=== PATIENT | male | born 1940 | race Caucasian/White ===

== ENCOUNTER 2019-08-03 07:27 | Inpatient (IN) ==
--- NOTE | 2019-06-29 09:44 | PAT Medication Instructions ---
Medication Instructions Date of Service June 29, 2019 Home Medications aspirin 325 mg PO DAILY isosorbide mononitrate 60 mg PO DAILY ASK your prescriber and surgeon aspirin 325 mg PO DAILY Take morning of surgery With a small sip of water, OTHERWISE NOTHING TO EAT OR DRINK AFTER MIDNIGHT: isosorbide mononitrate 60 mg PO DAILY Other Notes If you have any questions please call us at [phone] or [phone] or [phone] or [phone]
--- NOTE | 2019-06-29 11:11 | Anesthesiology Consultation ---
Date of Service June 29, 2019 Assessment & Plan (1) Encounter for pre-operative examination: PCP clearance scheduled for 07/12/2019. Chart Review Chart Review: Acceptable Risk for Surgery (Pending PCP clearance/response to note re: renal function) and Patient seen in Pre Admission Testing Teaching & Discussion Instructed NPO after midnight before surgery, except medications with 15 cc of water. Medication instructions provided according to the PAT guidelines. History Surgery Operation Date: 08/03/19 09:05 Proposed Procedures p Left Total Knee Arthroplasty - Walt Otero DO Height/Weight Height: 5 ft 8.5 in Weight: 70.5 kg Allergies Allergy/AdvReac Type Severity Reaction Status Date / Time No Known Allergies Allergy Verified 06/28/19 15:37 Medications Home Medications Medication Instructions Recorded Confirmed Last Taken aspirin 325 mg PO DAILY 06/28/19 06/28/19 Unknown isosorbide mononitrate 60 mg PO DAILY 06/28/19 06/28/19 Unknown Past Medical History Medical History CAD (coronary artery disease) s/p single stent ~11 yrs ago. Was previously on full medical regimen but states the medications "made me feel awful," and he discontinued them. Pt is very active with no limiting cardiopulmonary symptoms. 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.) Past Family History Family History Brother Family hx of colon cancer Past Surgical History Surgical History H/O shoulder surgery LEFT History of cataract surgery RT/LEFT History of colonoscopy History of esophagogastroduodenoscopy (EGD) History of heart artery stent 1 STENT PLACED 11 YEARS AGO [facility] History of nephrectomy, right "GROWTH FOUND/REMOVED" (BENIGN) History of open reduction and internal fixation (ORIF) procedure LEFT LEG History of orchiectomy History of tonsillectomy and adenoidectomy History of tooth extraction Past Anesthesia History No Hx of Anesthesia Complications and No Family Hx of Anesthesia Complications History of PONV No Hx of PONV and No Hx of Motion Sickness Social History Smoking Status: Never smoker Do You Dip or Chew Tobacco: No Hx Alcohol Use: Yes Alcohol type: wine alcohol intake frequency: a few times a week Hx Substance Use: No substance use type: does not use Review of Systems Pt denies any chest pain, shortness of breath, palpitations, cough, fever or URI. Physical Exam Vital Signs BP: 144/63 P: 73bpm SPO2: 96% RA T: 98.2 F R: 16 ENMT Mouth: + dentures (full set) and + edentulous Thyromental Distance: < 3.5 Finger Breadths (3) Mallampati Class: I Neck normal visual inspection; neck extension not limited Respiratory normal respiratory effort Auscultation: lungs clear to auscultation bilaterally Cardiovascular Rate/Rhythm: regular rate and regular rhythm Heart Sounds: no murmur Vessels: no carotid bruit Extremities: no edema Testing Laboratory Results 06/29/19 11:25 06/29/19 11:25 PT 10.3 Seconds (9.0-12.0) 06/29/19 11:25 INR 1.0 (0.9-1.1) 06/29/19 11:25 APTT 27.0 Seconds (21.0-31.0) 06/29/19 11:25 Hemoglobin A1c 5.8 % (4.5-5.6) H 06/29/19 11:25 Urine Color Yellow 06/29/19 11:25 Urine Appearance Clear (Clear) 06/29/19 11:25 Urine pH 5.0 (4.5-7.5) 06/29/19 11:25 Ur Specific [place] 1.024 (1.000-1.030) 06/29/19 11:25 Urine Protein Negative (Negative) 06/29/19 11:25 Urine Glucose (UA) Negative (Negative) 06/29/19 11:25 Urine Ketones Negative (Negative) 06/29/19 11:25 Urine Nitrite Negative (Negative) 06/29/19 11:25 Ur Leukocyte Esterase Negative (Negative) 06/29/19 11:25 Urine WBC (Auto) 1-5 /hpf (0-5) 06/29/19 11:25 Urine RBC (Auto) 5-10 /hpf (0-4) H 06/29/19 11:25 U Hyaline Cast (Auto) 1-5 /lpf (0-5) 06/29/19 11:25 U Epithel Cells (Auto) 0-5 /lpf (0-5) 06/29/19 11:25 Urine Bacteria (Auto) Negative (Negative) 06/29/19 11:25 Blood Type A Positive 06/29/19 11:25 Antibody Screen NEGATIVE 06/29/19 11:25 Electrocardiogram Date: 06/29/19 Sinus rhythm at 64 bpm with occasional PVCs. Voltage criteria for LVH. Chest X-Ray Date: 06/29/19 FINDINGS: Cardiac mediastinal and hilar silhouettes are within normal limits. Calcified plaque of the thoracic aortic arch. No pneumothorax, pleural effusion, focal airspace consolidation or overt pulmonary edema. Lungs are mildly hyperinflated. Degenerative changes of the shoulders and spine. Vascular calcifications and surgical clips of the upper abdomen. IMPRESSION: Mild hyperinflation without acute process.
--- NOTE | 2019-06-29 12:01 | XRay Report ---
XR chest Pre-admission PA/Lat HISTORY: 78 years-old Male pat preoperative exam. No acute chest complaints COMPARISON: None available TECHNIQUE: PA and lateral views of the chest FINDINGS: Cardiac mediastinal and hilar silhouettes are within normal limits. Calcified plaque of the thoracic aortic arch. No pneumothorax, pleural effusion, focal airspace consolidation or overt pulmonary edema . Lungs are mildly hyperinflated. Degenerative changes of the shoulders and spine. Vascular calcifica tions and surgical clips of the upper abdomen. IMPRESSION: Mild hyperinflation without acute process. The above report was generated using voice recognition software. It may contain grammatical, syntax o r spelling errors. Electronically signed by: Atul Quinn M.D. 06/29/2019 11:59 AM
[2019-06-29 12:27] LABS: Basophils # (auto) 0.02 K/uL (0-0.2); Basophils % (auto) 0.4 %; Eosinophils % (auto) 3.7 %; Hematocrit (blood only) 40.1 % (42-52); Hemoglobin 12.8 g/dL (14.0-18.0); Immature Granulocytes # (auto) 0.01 K/uL (0.00-0.02); Immature Granulocytes % (auto) 0.2 %; Mean Corpuscular Hemoglobin 28.6 pg (25-34); Mean Corpuscular Hgb Conc 31.9 g/dL (32-36); Mean Corpuscular Volume 89.7 fL (80-100); Mean Platelet Volume 9.4 fL (7.4-10.4); Monocytes # (auto) 0.32 K/uL (0.11-0.59); Neutrophils % (auto) 61.7 %; Platelet Count 163 K/uL (130-400); RDW Coefficient of Variation 14.3 % (11.5-14.5); Red Blood Count 4.47 M/uL (4.7-6.1); White Blood Count 5.35 K/uL (4.8-10.8)
[2019-06-29 12:31] LABS: Appearance Urine Clear (Clear); Bacteria Urine Automated Negative (Negative); Bilirubin Urine Negative (Negative); Blood Urine 1+ (Negative); Color Urine Yellow; Epithelial Cell Urine Auto 0-5 /lpf (0-5); Glucose Urine UA Negative (Negative); Ketones Urine Negative (Negative); Leukocyte Esterase Urine Negative (Negative); Nitrite Urine Negative (Negative); Protein Urine Negative (Negative); Specific Gravity Urine 1.024 (1.000-1.030); Urobilinogen Urine Negative (Negative)
[2019-06-29 12:45] LABS: Prothrombin Time 10.3 Seconds (9.0-12.0)
[2019-06-29 13:00] LABS: Estimated Average Glucose 120 mg/dl; Hemoglobin A1C 5.8 % (4.5-5.6)
[2019-06-29 13:35] LABS: Albumin Level 3.3 gm/dl (3.4-5.0); BUN Creatinine Ratio 15.1 (10-20); Calcium 8.6 mg/dl (8.5-10.1); Creatinine Clr Calc Pharmacy 32.2 ml/min; Est GFR (African American) 38.8; Est GFR (Non-African American) 33.5; Potassium 3.9 mmol/L (3.5-5.1)
--- NOTE | 2019-07-13 13:32 | History & Physical Report ---
Date of Service July 13, 2019 date of surgery: 08-03-19 Assessment & Plan (1) Osteoarthritis of left knee: Further care discussed with patient and at this point in time has failed conservative measures and would like to proceed with a Left total knee replacement. Plan on discharge will be home with Home Health physical therapy. DVT prophalaxis with TEDs, SCDs and will also place on aspirin 81 mg p.o. b.i.d. for a month postop. Patient will have follow up appointment in our office two weeks post op for staple removal and re-evaluation. Patient otherwise has no other questions or concerns. History of Present Illness Chief Complaint: left knee pain Mr Lundy is a 78 year old male who is here for a follow up of left knee pain, presents for pre-op evaluation prior to a left total knee replacement at [facility]. He complains of pain and decreased range of motion. denies any injuries or trauma. he has had prior cortisone as well as previous Synvisc one injections with minimal relief. The pain is described as aching, sharp and occasional stabbing. He rates his current pain as 5/10 and worst is 8/10. The symptoms are aggravated by daily activities, standing for prolonged periods of time, and walking. In addition to knee pain he is also experiencing limping and joint pain. Allergies Allergy/AdvReac Type Severity Reaction Status Date / Time No Known Allergies Allergy Verified 06/28/19 15:37 Home Medications Home Medications Medication Instructions Recorded Confirmed Type aspirin 325 mg PO DAILY 06/28/19 06/28/19 History isosorbide mononitrate 60 mg PO DAILY 06/28/19 06/28/19 History Past Med/Surg History Medical History CAD (coronary artery disease) s/p single stent ~11 yrs ago. Was previously on full medical regimen but states the medications "made me feel awful," and he discontinued them. Pt is very active with no limiting cardiopulmonary symptoms. Hyperlipidemia HX Hypertension Testicular cancer Surgical History H/O shoulder surgery LEFT History of cataract surgery RT/LEFT History of colonoscopy History of esophagogastroduodenoscopy (EGD) History of heart artery stent 1 STENT PLACED 11 YEARS AGO [facility] History of nephrectomy, right "GROWTH FOUND/REMOVED" (BENIGN) History of open reduction and internal fixation (ORIF) procedure LEFT LEG History of orchiectomy History of tonsillectomy and adenoidectomy History of tooth extraction Family History Brother Family hx of colon cancer Social History Preferred Language: Upper Sorbian Communication Ability: Effective 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 Beliefs That Will Affect Care: None Current Living Situation: Spouse Other Information That Helps Us Care for You: No Feels Safe at Home: Yes Safety Concerns: Feels Safe At This Time Smoking Status: Never smoker Do You Dip or Chew Tobacco: No ; Second Hand Exposure: No ; Tobacco Cessation Education Requested by Patient: No Hx Alcohol Use: Yes Alcohol type: wine Hx Substance Use: No Review of Systems Review of Systems: All systems reviewed & are unremarkable except as noted in HPI & below Constitutional: no fever, no chills and no sweats Respiratory: no cough and no dyspnea Cardiovascular: no chest pain, no dyspnea and no orthopnea Gastrointestinal: no abdominal pain, no nausea and no vomiting Musculoskeletal: as per Subjective / HPI Physical Exam Physical Exam: Ht: 5ft 8in Wt: 70.5kg BP: 164/82 Pulse: 82 Constitutional: WD/WN, vitals as above no acute distress Respiratory: normal respiratory effort, lungs clear to auscultation no respiratory distress, no labored breathing and does not use accessory muscles Cardiovascular: RRR, no murmur, no edema Gastrointestinal (Abdomen): normal bowel sounds, soft, nontender, no hepatosplenomegaly Musculoskeletal: Left Knee Physical Exam- Matt ambulates with a limp, there is no erythema, warmth, ecchymosis or atrophy noted, +1 effusion, greatest tenderness over the medial joint line and anterior knee joint. negative patellar apprehension , mild crepitation with motion, kavita's negative, posterior drawer negative. positive mcmurrays medially, negative anterior drawer, knee stable with valgus/varus stress. no extensor lag. pain with active range of motion, AROM 0/3/110, Passive ROM 0/3/115. No pain with active/passive ROM of ankle. Lower Extremity Strength normal. Lower Extremity Neuro-vascular is normal Results & Data Diagnostic Findings left knee xray from 04/08/19 confirms advanced degenerative changes to the left knee, greatest medial compartments and patellofemoral joint, showing joint space narrowing, osteophyte formation and subchondral sclerosis. no acute bony pathology noted. there is also retained hardware proximal to mid femur including plate and screws.
[~2019-08-03 07:27] MED LIST: ACETAMINOPHEN 500 MG TAB PO SCH; BUPIVACAINE 0.5 % 5 MG/1 ML PF 10ML VIAL ONE; CEFAZOLIN 1000MG 1,000 MG/7.5 ML SYR IV SCH; CeleBREX 200 MG CAP PO SCH; EPINEPHrine INJ 1 MG/ML AMP ONE; FAMOTIDINE 20 MG TAB PO SCH; GABAPENTIN 300 MG CAP PO SCH; LR 500ML BOLUS, THEN 15ML/HR IV SCH; METOCLOPRAMIDE HCL 10 MG TABLET PO SCH; OXYCODONE HCL 10 MG TABCR (OXYCONTIN) PO SCH; ROPIVACAINE 0.5% 5 MG/ML 30 ML VIAL ONE; ROPIVACAINE 0.5% HCL/PF 150 MG, BUPIVACAINE 0.5% MPF 30 ML, EPINEPHrine 30MG/30ML (OR U... INSTIL SCH; TRANEXAMIC ACID 1,000 MG **IV Intra-op IV SCH; TRANEXAMIC ACID 1,000 MG **IV Pre-op IV SCH; dexAMETHasone 4 MG TAB PO SCH
[2019-08-03] MEDS ORDERED: PROPOFOL IV EMULSION 10 MG/ML 20 ML VIAL IV ONE ×2 (08:06→10:40)
[2019-08-03] MEDS ORDERED: fentaNYL citrate 100 MCG/2 ML VIAL ONE (08:06)
[2019-08-03] MEDS ORDERED: ONDANSETRON INJ 2 MG/ML 2 ML VIAL ONE (08:06)
[2019-08-03] MEDS ORDERED: MIDAZOLAM HCL 1 MG/ML 2ML VIAL ONE (08:06)
[2019-08-03] MEDS ORDERED: DEXAMETHASONE SOD INJ 4 MG/ML VIAL ONE (08:06)
[2019-08-03] MEDS ORDERED: LIDOCAINE HCL 2% 2 ML VIAL/AMP(20MG/ML) INFIL ONE ×2 (08:06→10:40)
--- NOTE | 2019-08-03 08:32 | History & Physical Bridge Note ---
Date of Service August 03, 2019 History & Physical Bridge Note I have examined the patient, reviewed the History & Physical and in the interval since the performance of the History & Physical I have noted the following changes of clinical significance: no changes noted
[2019-08-03] MEDS ORDERED: BACITRACIN INJ 50,000 UNIT VIAL ONE (09:04)
[2019-08-03] MEDS ORDERED: ORTHO JOINT ANESTHETIC ONE (09:04)
--- NOTE | 2019-08-03 10:51 | Operative Report ---
Post Operative Report Pre & Post Diagnosis Operation Date: 08/03/19 09:40 Pre-Op Diagnosis: LEFT KNEE OSTEOARTHRITIS Post-Op Diagnosis: LEFT KNEE OSTEOARTHRITIS Procedure Operation Date: 08/03/19 09:40 Actual Procedures p Left Total Knee Arthroplasty(Left) utilizing Ordonez [employer] Nephew patient matched total knee arthroplasty 7 femur 7 tibia 9 polyethylene 35 oval patella- Walt Otero DO Surgeon Walt Otero DO Correctional Officer Justice MICHELLE Estimated Blood Loss 5 Findings Consistent with Post-Op Diagnosis Patient presents with severe end-stage DJD left knee no response to conservative management intraoperative findings with subchondral cystic changes marginal osteophytes [id number] eburnated bone moderate to large effusion patient has hardware in his femur hip from previous trauma and fractures none decades prior presents today for left total knee arthroplasty with a patient matched block total knee arthroplasty Specimens Bone cartilage Drains Medium bore Complications none Disposition Accompanied Patient To Recovery: No Disposition: Recovery Room Indications Patient presents with planes of ongoing pain trouble to the left knee no response to conservative management the above intraoperative findings were noted patient failed attempts at conservative management physical therapy anti- inflammatories relative rest activity modification corticosteroid injections [place] supplementation bracing presents for left total knee arthroplasty Description of Procedure After proper prepping and draping of the left lower extremity anterior midline incision was made over the region of the extensor extensor mechanism after meticulous hemostasis was obtained and maintained in subcutaneous tissues a medial parapatellar incision was made The patella was subluxed lateralward the medial lateral gutter were cleaned from any hypertrophic synovitis and scar tissue of the distal femoral block was placed and the distal femoral osteotomy cut was made subsequently the chamfers anterior and posterior osteotomy cuts were made utilizing the 4-in-1 block the tibia was subsequently subluxed anteriorward medial and ateral meniscal remnants were excised in their entirety remnants of the anterior and posterior cruciate ligaments were excised in their entirety excellent exposure of the proximal tibia was obtained the tibial osteotomy guide was placed on the proximal tibial osteotomy cut was made once again the knee was irrigated with copious amounts of sterile saline solution the patella was subsequently everted lateralward thickened scar tissue around the patella was removed the patella was subsequently cut utilizing a freehand technique and was drilled prepared for final preparation and placement of patella socially flexion-extension gaps were checked and the equal and symmetric trials were placed to the appropriate femoral and tibial trials with poly-spacer being placed for equal flexion and extension gaps and full range of motion including extension to 0 and flexion to 140 the trial components after having been taken to recovery range of motion was subsequently removed meticulous hemostasis was obtained and maintained subsequently a knee block injection of joint cocktail including ropivacaine 0.5% 150 mg. Bupivacaine 0.5% epinephrine 1-200,030 mL's toradol 30 mg dexamethasone 4 mg ketamine 10 mg clonidine 100 micrograms normal saline solution 30 mg was infiltrated into the soft tissues of the posterior knee medial lateral gutters and periosteal synovium special attention was paid to protect neurovascular structures at all times subsequently trial components having been removed the knee was irrigated with sterile saline solution. debris was removed the proximal tibia was subsequently prepared and was made ready for the placement of the tibial component tibial component was also cemented and tamped into position the femoral component was subsequently placed and cemented in the position the patellar component was subsequently cemented in position because hemostasis once again obtained and maintained wound having been thoroughly irrigated with debridement and debridement lavage was performed as well as a medial parapatellar incision closed with #1 Vicryl in interrupted fashion subcutaneous was closed with #2 Vicryl skin was closed with skin clips. PA-C was necessary for prepping and drapping as well as wound closure of deep fascia Sub cutaneous tissue and skin and was necessary for the case. A sterile compressive dressing was placed patient was taken to recovery in stable condition of report dictated by Branden I attest to the content of the Intraoperative Record and any orders documented therein. Any exceptions are noted below. I attest to the content of the Intraoperative Record and any orders documented therein. Any exceptions are noted below.
[2019-08-03] MEDS ORDERED: ATROPINE SULFATE 0.1 MG/ML 10ML SYR IV PRN (11:40)
[2019-08-03] MEDS ORDERED: ePHEDrine sulfate 50 MG/ML AMP IV PRN (11:40)
--- NOTE | 2019-08-03 12:29 | Anesthesiology Progress Note ---
Date of Service August 03, 2019 Anesthesia Post Procedure Vital Signs Vital Signs: Temp Pulse Resp BP Pulse Ox 08/03/19 12:15 36.3 C L 82 14 120/71 96 08/03/19 12:05 82 16 124/73 98 08/03/19 11:55 36.3 C L 79 15 125/68 98 08/03/19 11:45 36.3 C L 83 17 134/77 98 08/03/19 11:36 36.3 C L 83 16 121/73 99 08/03/19 08:00 36.6 C 90 18 161/91 H 96 Pain Intensity Left Knee: Pain Intensity: 0 Transfer of Care Handoff Completed per policy Notes Mental Status: alert / awake / arousable Patient Amnestic to Procedure: Yes Nausea / Vomiting: adequately controlled Pain: adequately controlled Airway Patency, RR, SpO2: stable & adequate BP & HR: stable & adequate Hydration State: stable & adequate Neuraxial Anesthesia: was administered and sensory block is resolving Anesthetic Complications: no major complications apparent
[2019-08-03] MEDS ORDERED: BISACODYL 10 MG SUPP PR PRN (13:01)
[2019-08-03] MEDS ORDERED: NALOXONE HCL 0.4 MG/1 ML VIAL/CARP IV PRN (13:01)
[2019-08-03] MEDS ORDERED: MAGNESIUM HYDROXIDE SUSP 30 ML UDC PO PRN (13:01)
[2019-08-03] MEDS ORDERED: HYDROmorphone INJ 1 MG/ML SYRINGE IV PRN (13:01)
[2019-08-03] MEDS ORDERED: ONDANSETRON INJ 2 MG/ML 2 ML VIAL IV PRN (13:01)
[2019-08-03] MEDS ORDERED: OXYCODONE HCL IR 5 MG TAB (IMMEDIATE RELEASE) PO PRN (13:01)
[2019-08-03] MEDS ORDERED: SODIUM CHLORIDE 0.9% 1000ML 1,000 ML IV SCH (13:01)
[2019-08-03] MEDS ORDERED: METOCLOPRAMIDE HCL INJ 5 MG/ML 2 ML VIAL IV PRN (13:01)
--- NOTE | 2019-08-03 13:30 | XRay Report ---
LEFT KNEE 2 VIEWS History: Left total knee arthroplasty. Degenerative arthritis. Postop. FINDINGS: The patient is status post a left total knee arthroplasty. The hardware is intact. No fract ure or dislocation. Skin flor and surgical drains are in place. IMPRESSION: Left total knee arthroplasty. No evidence for hardware complication. Electronically signed by: Israel Potter M.D. 08/03/2019 1:29 PM
[2019-08-03] MEDS: KETOROLAC TROMETHAMINE 15 MG/ML VIAL IV SCH ×2 (13:52→21:03)
[2019-08-03] MEDS: ACETAMINOPHEN 500 MG TAB PO SCH ×3 (15:27→21:02)
[2019-08-03] MEDS: CEFAZOLIN 2000MG 2,000 MG/15 ML SYR IV SCH (17:44)
[2019-08-03] MEDS ORDERED: SENNA 8.6 MG TAB PO SCH (21:00)
[2019-08-03] MEDS: ASPIRIN 81 MG ECTAB PO SCH (21:04)
[2019-08-03] MEDS: DOCUSATE SODIUM 100 MG CAP PO SCH (21:05)
[2019-08-04] MEDS: CEFAZOLIN 2000MG 2,000 MG/15 ML SYR IV SCH (01:39)
[2019-08-04] MEDS: KETOROLAC TROMETHAMINE 15 MG/ML VIAL IV SCH ×2 (01:39→09:23)
[2019-08-04] MEDS: ACETAMINOPHEN 500 MG TAB PO SCH ×2 (05:22→13:25)
[2019-08-04 06:34] LABS: Hematocrit (blood only) 36.1 % (42-52); Hemoglobin 11.9 g/dL (14.0-18.0); Mean Corpuscular Hemoglobin 28.6 pg (25-34); Mean Corpuscular Volume 86.8 fL (80-100); Mean Platelet Volume 9.1 fL (7.4-10.4); Platelet Count 142 K/uL (130-400); RDW Standard Deviation 44.4 fL (36.4-46.3); Red Blood Count 4.16 M/uL (4.7-6.1); White Blood Count 11.65 K/uL (4.8-10.8)
[2019-08-04 07:16] LABS: BUN Creatinine Ratio 16.3 (10-20); Calcium 8.1 mg/dl (8.5-10.1); Creatinine Clr Calc Pharmacy 32.6 ml/min; Est GFR (African American) 39.8; Est GFR (Non-African American) 34.4; Potassium 4.5 mmol/L (3.5-5.1)
--- NOTE | 2019-08-04 07:34 | Orthopedic Progress Note ---
Date of Service August 04, 2019 Assessment & Plan (1) Status post total left knee replacement: POD #1 s/p Left TKA pt/ot dvt proph with CHRISTA/SCD/ASA will recheck after PT today for poss discharge home today Subjective POD #1 s/p Left TKA Review of Systems Constitutional: no fever, no chills and no sweats Respiratory: no cough and no dyspnea Cardiovascular: no chest pain and no dyspnea Gastrointestinal: no abdominal pain, no nausea and no vomiting Physical Exam Physical Exam: Vital Signs Temp Pulse Pulse Resp BP BP Pulse Ox 08/04/19 07:16 36.6 C 80 16 163/78 H 96 08/04/19 03:06 36.4 C L 82 20 157/82 H 99 08/03/19 23:33 36.6 C 78 18 160/86 H 98 08/03/19 19:51 36.8 C 84 17 152/85 H 95 08/03/19 16:38 96 H 18 151/83 H 08/03/19 15:30 36.7 C 88 18 131/77 95 08/03/19 13:50 36.7 C 98 H 16 136/79 93 08/03/19 13:20 36.4 C L 89 18 121/67 94 08/03/19 12:45 36.5 C 89 16 138/74 94 08/03/19 12:35 36.3 C L 80 16 126/77 96 08/03/19 12:25 36.3 C L 82 15 130/73 94 08/03/19 12:15 36.3 C L 82 14 120/71 96 08/03/19 12:05 82 16 124/73 98 08/03/19 11:55 36.3 C L 79 15 125/68 98 08/03/19 11:45 36.3 C L 83 17 134/77 98 08/03/19 11:36 36.3 C L 83 16 121/73 99 08/03/19 08:00 36.6 C 90 18 161/91 H 96 Intake and Output 08/03/19 08/04/19 08/04/19 22:59 06:59 14:59 Intake Total 728.333 / 5187.833 200 / 5187.833 Output Total 1425 / 1671 200 / 1671 Balance -696.667 / 3516.83 3 0 / 3516.833 Intake: IV 728.333 / 2047.833 Nss 1000ML 1,0 00 ml @ 100 mls/ 728.333 / 728.333 hr IV .Q10H SC H Rx#:[id number] Oral 200 / 440 Output: Urine 1150 / 1150 Drain Output 275 / 511 200 / 511 Left Knee Hemo vac #1 275 / 511 200 / 511 Other: # Unmeasured Voi ds 1 # Bowel Movement Diapers 1 Constitutional: WD/WN, vitals as above no acute distress Musculoskeletal: left Leg: NVDI, calf SNT, negative azeem sign. DP palpable, able to wiggle toes/ankle movement without difficulty. dressing clean dry and intact. Results & Data Vital Signs (Past 12 Hours) Vital Signs Temp Pulse Resp BP BP Pulse Ox 08/04/19 07:16 36.6 C 80 16 163/78 H 96 08/04/19 03:06 36.4 C L 82 20 157/82 H 99 08/03/19 23:33 36.6 C 78 18 160/86 H 98 08/03/19 19:51 36.8 C 84 17 152/85 H 95 Laboratory Results Laboratory Results WBC 11.65 K/uL (4.8-10.8) H 08/04/19 06:19 RBC 4.16 M/uL (4.7-6.1) L 08/04/19 06:19 Hgb 11.9 g/dL (14.0-18.0) L 08/04/19 06:19 Hct 36.1 % (42-52) L 08/04/19 06:19 MCV 86.8 fL (80-100) 08/04/19 06:19 MCH 28.6 pg (25-34) 08/04/19 06:19 MCHC 33.0 g/dL (32-36) 08/04/19 06:19 RDW Std Deviation 44.4 fL (36.4-46.3) 08/04/19 06:19 RDW Coeff of [place] 14.0 % (11.5-14.5) 08/04/19 06:19 Plt Count 142 K/uL (130-400) 08/04/19 06:19 MPV 9.1 fL (7.4-10.4) 08/04/19 06:19 Immature Gran % (Auto) 0.2 % 06/29/19 11:25 Neut % (Auto) 61.7 % 06/29/19 11:25 Lymph % (Auto) 28.0 % 06/29/19 11:25 [place] % (Auto) 6.0 % 06/29/19 11:25 Eos % (Auto) 3.7 % 06/29/19 11:25 Baso % (Auto) 0.4 % 06/29/19 11:25 Immature Gran # (Auto) 0.01 K/uL (0.00-0.02) 06/29/19 11:25 Neut # (Auto) 3.30 K/uL (1.4-6.5) 06/29/19 11:25 Lymph # (Auto) 1.50 K/uL (1.2-3.4) 06/29/19 11:25 [place] # (Auto) 0.32 K/uL (0.11-0.59) 06/29/19 11:25 Eos # (Auto) 0.20 K/uL (0-0.5) 06/29/19 11:25 Baso # (Auto) 0.02 K/uL (0-0.2) 06/29/19 11:25 PT 10.3 Seconds (9.0-12.0) 06/29/19 11:25 INR 1.0 (0.9-1.1) 06/29/19 11:25 APTT 27.0 Seconds (21.0-31.0) 06/29/19 11:25 PTT Ratio 1.0 06/29/19 11:25 Sodium 139 mmol/L (136-145) 08/04/19 06:19 Potassium 4.5 mmol/L (3.5-5.1) 08/04/19 06:19 Chloride 107 mmol/L (98-107) 08/04/19 06:19 Carbon Dioxide 27 mmol/L (21-32) 08/04/19 06:19 Anion Gap 5.0 (3-11) 08/04/19 06:19 BUN 30 mg/dl (7-18) H 08/04/19 06:19 Creatinine 1.85 mg/dl (0.6-1.4) H 08/04/19 06:19 Est Cr Clr Drug Dosing 32.6 ml/min 08/04/19 06:19 Est GFR ( Amer) 39.8 08/04/19 06:19 Est GFR (Non-Af Amer) 34.4 08/04/19 06:19 BUN/Creatinine Ratio 16.3 (10-20) 08/04/19 06:19 Glucose 109 mg/dl (70-99) H 08/04/19 06:19 Estimat Average Glucose 120 mg/dl 06/29/19 11:25 Hemoglobin A1c 5.8 % (4.5-5.6) H 06/29/19 11:25 Calcium 8.1 mg/dl (8.5-10.1) L 08/04/19 06:19 Albumin 3.3 gm/dl (3.4-5.0) L 06/29/19 11:25 Urine Color Yellow 06/29/19 11:25 Urine Appearance Clear (Clear) 06/29/19 11:25 Urine pH 5.0 (4.5-7.5) 06/29/19 11:25 Ur Specific [place] 1.024 (1.000-1.030) 06/29/19 11:25 Urine Protein Negative (Negative) 06/29/19 11:25 Urine Glucose (UA) Negative (Negative) 06/29/19 11:25 Urine Ketones Negative (Negative) 06/29/19 11:25 Urine Blood 1+ (Negative) H 06/29/19 11:25 Urine Nitrite Negative (Negative) 06/29/19 11:25 Urine Bilirubin Negative (Negative) 06/29/19 11:25 Urine Urobilinogen Negative (Negative) 06/29/19 11:25 Ur Leukocyte Esterase Negative (Negative) 06/29/19 11:25 Urine WBC (Auto) 1-5 /hpf (0-5) 06/29/19 11:25 Urine RBC (Auto) 5-10 /hpf (0-4) H 06/29/19 11:25 U Hyaline Cast (Auto) 1-5 /lpf (0-5) 06/29/19 11:25 U Epithel Cells (Auto) 0-5 /lpf (0-5) 06/29/19 11:25 Urine Bacteria (Auto) Negative (Negative) 06/29/19 11:25 Blood Type A Positive 06/29/19 11:25 Antibody Screen NEGATIVE 06/29/19 11:25 Diagnostic Findings LEFT KNEE 2 VIEWS History: Left total knee arthroplasty. Degenerative arthritis. Postop. FINDINGS: The patient is status post a left total knee arthroplasty. The hardware is intact. No fracture or dislocation. Skin flor and surgical drains are in place. IMPRESSION: Left total knee arthroplasty. No evidence for hardware complication.
[2019-08-04] MEDS ORDERED: ISOSORBIDE MONO EXTENDED REL 60 MG TABCR PO SCH (09:00)
[2019-08-04] MEDS ORDERED: MULTIVITAMIN TAB PO SCH (09:00)
[2019-08-04] MEDS: DOCUSATE SODIUM 100 MG CAP PO SCH (09:26)
[2019-08-04] MEDS: ASPIRIN 81 MG ECTAB PO SCH (09:27)
--- NOTE | 2019-08-04 10:29 | Anesthesiology Progress Note ---
Date of Service August 04, 2019 Anesthesia Post Procedure Vital Signs Vital Signs: Temp Pulse Pulse Resp BP BP Pulse Ox 08/04/19 07:16 36.6 C 80 16 163/78 H 96 08/04/19 03:06 36.4 C L 82 20 157/82 H 99 08/03/19 23:33 36.6 C 78 18 160/86 H 98 08/03/19 19:51 36.8 C 84 17 152/85 H 95 08/03/19 16:38 96 H 18 151/83 H 08/03/19 15:30 36.7 C 88 18 131/77 95 08/03/19 13:50 36.7 C 98 H 16 136/79 93 08/03/19 13:20 36.4 C L 89 18 121/67 94 08/03/19 12:45 36.5 C 89 16 138/74 94 08/03/19 12:35 36.3 C L 80 16 126/77 96 08/03/19 12:25 36.3 C L 82 15 130/73 94 08/03/19 12:15 36.3 C L 82 14 120/71 96 08/03/19 12:05 82 16 124/73 98 08/03/19 11:55 36.3 C L 79 15 125/68 98 08/03/19 11:45 36.3 C L 83 17 134/77 98 08/03/19 11:36 36.3 C L 83 16 121/73 99 Pain Intensity Left Knee: Pain Intensity: 0 Notes Mental Status: alert / awake / arousable and participated in evaluation Nausea / Vomiting: adequately controlled Pain: adequately controlled Airway Patency, RR, SpO2: stable & adequate BP & HR: stable & adequate Hydration State: stable & adequate Neuraxial Anesthesia: sensory block resolved
[2019-08-04 11:06] VITALS: TEMP 97.7; O2SAT 97
[2019-08-04] MEDS ORDERED: CeleBREX 200 MG CAP PO SCH (13:00)
[2019-08-04 13:28] VITALS: BP 160/86; PULSE 80
--- NOTE | 2019-08-04 16:33 | Discharge Summary ---
Date of Service date of discharge: August 04, 2019 date of admissioN: 08-03-19 Admission HPI Per Admitting Provider Mr Lundy is a 78 year old male who is here for a follow up of left knee pain, presents for pre-op evaluation prior to a left total knee replacement at [facility]. He complains of pain and decreased range of motion. denies any injuries or trauma. he has had prior cortisone as well as previous Synvisc one injections with minimal relief. The pain is described as aching, sharp and occasional stabbing. He rates his current pain as 5/10 and worst is 8/10. The symptoms are aggravated by daily activities, standing for prolonged periods of time, and walking. In addition to knee pain he is also experiencing limping and joint pain. Principal Diagnosis left knee osteoarthritis Discharge Exam Vital Signs Temp Pulse Pulse Resp BP BP Pulse Ox 08/04/19 13:26 36.5 C 80 85 16 160/86 H 97 08/04/19 11:05 36.5 C 85 16 117/70 97 08/04/19 07:16 36.6 C 80 16 163/78 H 96 08/04/19 03:06 36.4 C L 82 20 157/82 H 99 08/03/19 23:33 36.6 C 78 18 160/86 H 98 08/03/19 19:51 36.8 C 84 17 152/85 H 95 08/03/19 16:38 96 H 18 151/83 H Intake and Output 08/04/19 08/04/19 08/04/19 06:59 14:59 22:59 Intake Total 200 / 5187.833 Output Total 200 / 1671 75 / 75 Balance 0 / 3516.833 -75 / -75 Intake: Oral 200 / 440 Output: Drain Output 200 / 511 75 / 75 Left Knee Hemovac #1 200 / 511 75 / 75 Other: # Unmeasured Voids 1 Weight 68.9 kg Patient Weight 08/05/19 06:59 Weight 68.9 kg Constitutional WD/WN, vitals as above no acute distress Musculoskeletal NVDI, calf SNT, negative azeem sign. DP palpable, able to wiggle toes/ankle movement without difficulty. PETRA dressing clean dry and intact. expected post- operative bruising noted. Discharge Data Allergies Allergy/AdvReac Type Severity Reaction Status Date / Time No Known Allergies Allergy Verified 08/03/19 07:58 Consultations 08/03/19 13:01 Consult Case Management - Discharge Planning Routine Procedures Performed Operation Date: 08/03/19 09:40 Actual Procedures p Left Total Knee Arthroplasty(Left) - Walt Otero DO Ordered Studies 08/03/19 05:00 US - OR guided needle placemen Routine Hospital Course (1) Status post total left knee replacement: POD #1 s/p Left TKA pt/ot dvt proph with CHRISTA/SCD/ASA will recheck after PT today for poss discharge home today Total Time Total Time Spent Total Time Spent (In Minutes): 20 Total Time Includes: Examination of the Patient, Discharge Planning and Medication Reconciliation Discharge Plan Discharge Items Patient Disposition: Home - Self-Care Reason For Visit: LEFT KNEE OSTEOARTHRITIS Discharge Diagnosis: left total knee replacement Discharge Goals: Decrease discomfort, Improve function and Increase independence Activity: Per 'Additional Instructions' section Lifting: Wait until after follow-up appointment Exercise/Sports: Wait until after follow-up appointment Weightbearing Comment: WBAT with walker Non-emergency contact: Primary Care Provider and Surgeon Call non-emergency contact if: you have any medication questions, your temperature is above 101, your wound has increased redness, your wound has inc reased drainage and your wound pain has increased Follow-up/Referrals: PCP,NO [Primary Care Provider] - Diet: Regular Addtl Provider Instructions: ACTIVITY RECOMMENDATIONS: SELF CARE INSTRUCTIONS AFTER TOTAL KNEE REPLACEMENT A. You may need to continue a physical therapy program after discharge from the hospital. There are several options available to you. Your doctor will assist you in selecting the best one for you. 1. An out-patient facility 2 to 3 times a week for therapy or home therapy. 2. Continue working on all exercises taught to you in the hospital. Your goals should be to increase bending of your knee to 90 degrees and beyond and to fully straighten your knee. B. You may progress at your own pace from walking with a walker or crutches to a cane; then to no assistive devices. C. Make walking a part of your daily routine. Be up as much as comfortable with rest periods throughout the day. Rest with leg elevation is very important. Use the ice wrap frequently for the first 3-4 weeks. D. There are no restrictions on activities. You may ride in a car, shop, participate in deli cutter slicer and all social activities. E. Wear the long elastic stockings (CHRISTA hose) 20 hours a day for 2 weeks after surgery. They can be removed several times a day for laundering and for a bath. F. You may shower, no tub baths until cleared by your doctor. SPECIAL CARE INSTRUCTIONS: VERY IMPORTANT TO READ AND REVIEW A. There are a few signs you need to watch for after you are home. Call [facility] if you notice any of the followin. Increased severe knee pain. Some pain is expected especially when you exercise. 2. Increased swelling in your leg or knee; pain or swelling of the calf muscle in either lower leg. 3. Any fluid drainage from the incision. 4. Shortness of breath or chest pain. B. Please call [facility] at if you have any concerns or questions about your operation or recovery. The doctor or his nurse will return your call promptly. C. You must take antibiotics before dental work, bladder, bowel or other surgery. Your doctor will provide you with a permanent care to carry describing this precaution. IMPORTANT: * REMEMBER TO TAKE ASPIRIN, 81 MG, TWICE DAILY FOR 4 WEEKS UNLESS OTHERWISE DIRECTED. THIS IS YOUR BLOOD THINNER. * HIGH RISK PATIENTS MAY BE PRESCRIBED A STRONGER BLOOD THINNER. THIS WILL BE PROVIDED AT DISCHARGE. * CALL IF INCREASED PAIN, REDNESS, DRAINAGE OR FEVER GREATER THAT 101. * WEAR CHRISTA HOSE 20 HOURS PER DAY FOR 2 WEEKS. * PETRA Dressing- This is a large suction dressing covering your incision. This will help pull any excess drainage from the wound and allow your incision to heal properly. You may shower with this if you can keep the unit outside of the shower. If any bleeding or leakage is noted please call your doctor's office. This will remain on your incision for 7 days and then should be removed. This can be done yourself or by the home nursing staff if applicable. The entire unit is disposable once removed. Once removed, keep incision clean and dry. If redness or drainage is noted, please call your surgeon. IF INCISION IS LEAKING THROUGH DRESSING, CALL THE OFFICE . FOLLOW UP VISIT: If appointment is not already scheduled: Please call [facility] to make a follow-up appointment for 2 weeks after your surgery at . Prescriptions: New acetaminophen [Tylenol Extra Strength] 500 mg Tablet 1,000 mg PO Q8 14 Days Qty: 84 RF: 0 aspirin [Ecotrin Low Strength] 81 mg Tablet,Delayed Release (Dr/Ec) 81 mg PO BID 30 Days Qty: 60 RF: 0 celecoxib [Celebrex] 200 mg Capsule 200 mg PO BID 30 Days Qty: 60 RF: 0 docusate sodium 100 mg Capsule 100 mg PO BID 10 Days Qty: 20 RF: 0 oxycodone 5 mg Tablet 5 - 10 mg PO Q4H PRN (Reason: pain) Qty: 30 RF: 0 cefadroxil 500 mg capsule 500 mg PO BID 10 Days Qty: 20 RF: 0 Continued isosorbide mononitrate 60 mg Tablet Extended Release 24 Hr 60 mg PO DAILY RF: 0 Discontinued aspirin 325 mg Tablet 325 mg PO DAILY RF: 0 Stand-Alone Forms: [employer], [facility] [employer]/Other Patient Handouts: Surgery Prevent DVT After, Replacement Knee, Replacement Knee Home After, Replacement Knee First Month, Surgery Joint Home Safety Discharge Orders: Discharge Order (Routine); Ordered 08/04/19 Ordered By: Panda Chavez Admission Data Admit Date/Time: 08/03/19 11:42 Attending Provider: Walt Otero Admit Provider: Walt Otero Primary Care Provider: PCP,APOLINAR Service: Surgical Services Other Interventions: Discharge Summary Assessment (RN) Last Done: 08/04/19 13:26 DC Date/Time DO NOT enter until pt leaves facility: 08/04/19 14:24
== END 2019-08-04 14:24 | disposition home or self-care (01) | DRG 470 ==
LOC: ASU 07:27 → 3E 11:42
DX: Z79.899 Other long term (current) drug therapy; Z95.5 Presence of coronary angioplasty implant and graft; I10 Essential (primary) hypertension; I25.10 Atherosclerotic heart disease of native coronary artery without angina pectoris; M17.12 Unilateral primary osteoarthritis, left knee; Z79.82 Long term (current) use of aspirin

== ENCOUNTER 2020-08-01 05:59 | Inpatient (IN) ==
--- NOTE | 2020-07-02 16:18 | PAT Medication Instructions ---
Medication Instructions Date of Service July 02, 2020 Home Medications isosorbide mononitrate 60 mg PO QAM aspirin 325 mg PO QAM ASK your prescriber and surgeon aspirin 325 mg PO QAM Take morning of surgery With a small sip of water, OTHERWISE NOTHING TO EAT OR DRINK AFTER MIDNIGHT: isosorbide mononitrate 60 mg PO QAM Other Notes If you have any questions please call us at [phone] or [phone] or [phone] or [phone]
--- NOTE | 2020-07-03 12:40 | History & Physical Report ---
Date of Service July 03, 2020 date of surgery: 08-01-20 Procedure: Right total knee replacement Assessment & Plan (1) Arthritis of right knee: Risks and benefits of procedure discussed in detail today, patient would like to proceed with a Right total knee replacement at [facility] as scheduled. will obtain medical clearance from Dr Parra prior to surgery as well as obtain PATs at [facility]. Will place on ASA 81mg po bid x 1 month post op, f/u 2 weeks post op for routine post-operative care and x-ray, sooner if having any problems. will make arrangements for HHPT at the time of discharge. At this point in time, has failed conservative measures and would like to proceed with surgical intervention. The risks and benefits have been discussed including, but not limited to, risk of infection, nerve injury, stiffness, loss of motion, failure to improve, etc. Reasonable outcomes and options of treatment were discussed. An explanation of appropriate alternatives to the procedure that may be advantageous were discussed and their risks and benefits, as well as the risks and benefits of not proceeding with treatment. I offered to answer any additional inquiries concerning the treatment involved. All the patient's questions were answered. The patient is agreeable, understanding of the treatment plan and alternatives, and wishes to proceed with the treatment plan. History of Present Illness Chief Complaint: Right knee pain Mr Lundy is a 79 year old male who complains of right knee pain, presents for pre-op prior to a right total knee replacement at [facility]. He presents with pain and stiffness on the right side. He states that the symptoms have been chronic non-traumatic and are constant with intermittent worsening. Currently the patient states that the symptoms are moderate. The pain is described as aching and throbbing. He rates his current pain as 5/10. The symptoms are aggravated by daily activities. he has had prior visco injections without much relief. Allergies Allergy/AdvReac Type Severity Reaction Status Date / Time No Known Allergies Allergy Verified 06/28/20 12:04 Home Medications Home Medications Medication Instructions Recorded Confirmed Type isosorbide mononitrate 60 mg PO QAM 06/28/19 06/28/20 History aspirin 325 mg PO QAM 06/28/20 06/28/20 History Past Med/Surg History Medical History CAD (coronary artery disease) s/p single stent ~11 yrs ago. Was previously on full medical regimen but states the medications "made me feel awful," and he discontinued them. Pt is very active with no limiting cardiopulmonary symptoms. 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 History of open reduction and internal fixation (ORIF) procedure LEFT LEG History of orchiectomy History of tonsillectomy and adenoidectomy History of tooth extraction Family History Brother Family hx of colon cancer Social History Smoking Status: Never smoker Second Hand Exposure: No; Do You Dip or Chew Tobacco: No; Hx Alcohol Use: Yes Alcohol type: beer, wine and hard liquor Hx Substance Use: No Preferred Language: Hungarian Communication Ability: Effective Registered Nurse Required: No Beliefs That Will Affect Care: None marital status: Current Living Situation: Spouse Other Information That Helps Us Care for You: No Feels Safe at Home: Yes Safety Concerns: Feels Safe At This Time Review of Systems Review of Systems: All systems reviewed & are unremarkable except as noted in HPI & below Constitutional: no fever, no chills and no sweats Respiratory: no cough and no dyspnea Cardiovascular: no chest pain, no dyspnea and no orthopnea Gastrointestinal: no abdominal pain, no nausea and no vomiting Musculoskeletal: as per Subjective / HPI Physical Exam Physical Exam: Ht: 5ft 8in Wt: 72.58kg BP: 128/78 Constitutional: WD/WN, vitals as above no acute distress Respiratory: normal respiratory effort, lungs clear to auscultation no respiratory distress, no labored breathing and does not use accessory muscles Cardiovascular: RRR, no murmur, no edema Gastrointestinal (Abdomen): normal bowel sounds, soft, nontender, no hepatosplenomegaly Musculoskeletal: Knee: + knee abnormal to inspection (Right knee-), + effusion (+1 effusion), + limited ROM of knee (ROM 0/3/110), + knee ROM with crepitation, + joint line tenderness (medial joint line) and + Maciej's sign positive; no deformity, no skin erythema, no ecchymosis, no valgus laxity, no varus laxity, anterior drawer test negative, Laurie's sign negative and pivot shift test negative Results & Data Results & Data ([facility]) Diagnostic Findings Right Knee X-ray: Right knee series showing advanced degenerative changes to the right knee, narrowing of the medial compartment and patello-femoral joint with patellar spurring noted, findings showing joint space narrowing of the medial compartment and patello-femoral joint, osteophyte formation and subchondral sclerosis noted. overall varus alignment. no acute bony pathology noted.
--- NOTE | 2020-07-03 13:54 | Anesthesiology Consultation ---
Date of Service July 03, 2020 Assessment & Plan (1) Encounter for pre-operative examination: COVID Status: As of 07/03 assessment, patient denies travel to endemic area, known exposure/sick contacts, or symptoms of COVID19. Patient instructed that they and their household members must follow strict social distancing guidelines, wear a mask in public and avoid travel for 14 days prior to surgery. Preoperative COVID19 testing to be completed prior to surgery per surgeon's arrangements. Patient made aware to self-isolate as much as possible between COVID testing and surgery. S/P L TKA 08/04/19 @ [facility]. SAB and regional block without issues per record. Chart Review Chart Review: Acceptable Risk for Surgery (pending surgeon ordered PCP clearance) and Patient seen in Pre Admission Testing Teaching & Discussion Instructed NPO after midnight before surgery, except medications with 15 cc of water. Medication instructions provided according to the PAT guidelines. History Surgery Operation Date: 08/01/20 11:30 Proposed Procedures p Right Total Knee Arthroplasty - Walt Otero DO Height/Weight Height: 5 ft 8 in Weight: 70.4 kg Allergies Allergy/AdvReac Type Severity Reaction Status Date / Time No Known Allergies Allergy Verified 06/28/20 12:04 Medications Home Medications Medication Instructions Recorded Confirmed Last Taken isosorbide mononitrate 60 mg PO QAM 06/28/19 06/28/20 08/03/19 06:00 aspirin 325 mg PO QAM 06/28/20 06/28/20 Unknown Past Medical History Medical History CAD (coronary artery disease) s/p single stent ~11 yrs ago. Was previously on full medical regimen but states the medications "made me feel awful," and he discontinued them. Pt is very active with no limiting cardiopulmonary symptoms. CKD (chronic kidney disease) Baseline Cr ~ 1.8 Hyperlipidemia HX Hypertension Testicular cancer 48 YRS AGO Exercise / Class Metabolic Activity II 4-5 Yardwork/Stairs/Walk up hill Past Family History Family History Brother Family hx of colon cancer Past Surgical History Surgical History H/O shoulder surgery LEFT History of cataract surgery RT/LEFT History of colonoscopy History of esophagogastroduodenoscopy (EGD) History of heart artery stent 1 STENT PLACED [address] 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 SAB and regional block without issues per record. Past Anesthesia History No Hx of Anesthesia Complications and No Family Hx of Anesthesia Complications History of PONV No Hx of PONV and No Hx of Motion Sickness Social History Smoking Status: Never smoker Do You Dip or Chew Tobacco: No Hx Alcohol Use: Yes Alcohol type: beer, wine and hard liquor alcohol intake frequency: a few times a week Hx Substance Use: No substance use type: does not use Review of Systems Pt denies any recent chest pain, shortness of breath, palpitations, cough, fever, URI, or uncontrolled acid reflux. Physical Exam Vital Signs BP: 128/70 P: 72bpm SPO2: 95% RA T: 97.8 F R: 16 ENMT Mouth: + dentures and + edentulous Thyromental Distance: > or= 3.5 Finger Breadths (.5) Mallampati Class: I Neck normal visual inspection; neck extension not limited Respiratory normal respiratory effort Auscultation: lungs clear to auscultation bilaterally Cardiovascular Rate/Rhythm: regular rate and regular rhythm Heart Sounds: no murmur Vessels: no carotid bruit Extremities: no edema Testing Laboratory Results 07/03/20 14:21 07/03/20 14:21 PT 10.7 Seconds (9.0-12.0) 07/03/20 14:21 INR 1.0 (0.9-1.1) 07/03/20 14:21 APTT 29.3 Seconds (21.0-31.0) 07/03/20 14:21 Hemoglobin A1c 6.0 % (4.5-5.6) H 07/03/20 14:21 Urine Color Yellow 07/03/20 14:21 Urine Appearance Clear (Clear) 07/03/20 14:21 Urine pH 5.0 (4.5-7.5) 07/03/20 14:21 Ur Specific Bulger 1.026 (1.000-1.030) 07/03/20 14:21 Urine Protein Negative (Negative) 07/03/20 14:21 Urine Glucose (UA) Negative (Negative) 07/03/20 14:21 Urine Ketones Trace (Negative) H 07/03/20 14:21 Urine Nitrite Negative (Negative) 07/03/20 14:21 Ur Leukocyte Esterase Negative (Negative) 07/03/20 14:21 Blood Type A Positive 07/03/20 14:21 Antibody Screen NEGATIVE 07/03/20 14:21 Electrocardiogram Date: 07/03/20 Sinus rhythm with occasional PVCs. Voltage criteria for LVH. Possible inferior infarct, age undetermined. Compared to EKG from 06/29/19, borderline criteria for inferior infarct are now present. Chest X-Ray Date: 07/03/20 Findings: + NAD
--- NOTE | 2020-07-03 14:44 | XRay Report ---
TWO VIEW CHEST CLINICAL HISTORY: Preoperative examination. FINDINGS: PA and lateral chest radiographs are compared to study dated 06/29/2019. The cardiomediastin al silhouette is unremarkable noting atherosclerotic calcification of the thoracic aorta. The lungs and pleural spaces are clear. There is no pneumothorax. The bony thorax appears intact. Degenerative change is noted throughout the thoracic spine. IMPRESSION: No active disease in the chest. ACT 112: Negative or not required by law. Electronically signed by: Jeyson Kessler M.D. 07/03/2020 2:43 PM
[2020-07-03 14:48] LABS: Basophils # (auto) 0.04 K/uL (0-0.2); Basophils % (auto) 0.8 %; Eosinophils # (auto) 0.35 K/uL (0-0.5); Eosinophils % (auto) 6.6 %; Hematocrit (blood only) 42.9 % (42-52); Hemoglobin 13.9 g/dL (14.0-18.0); Immature Granulocytes # (auto) 0.01 K/uL (0.00-0.02); Immature Granulocytes % (auto) 0.2 %; Lymphocytes % (auto) 26.6 %; Mean Corpuscular Hemoglobin 28.7 pg (25-34); Mean Corpuscular Hgb Conc 32.4 g/dL (32-36); Mean Corpuscular Volume 88.5 fL (80-100); Mean Platelet Volume 9.1 fL (7.4-10.4); Monocytes # (auto) 0.32 K/uL (0.11-0.59); Monocytes % (auto) 6.1 %; Neutrophils # (auto) 3.15 K/uL (1.4-6.5); Neutrophils % (auto) 59.7 %; Platelet Count 169 K/uL (130-400); RDW Coefficient of Variation 15.7 % (11.5-14.5); RDW Standard Deviation 50.6 fL (36.4-46.3); Red Blood Count 4.85 M/uL (4.7-6.1); White Blood Count 5.27 K/uL (4.8-10.8)
[2020-07-03 14:56] LABS: Appearance Urine Clear (Clear); Bilirubin Urine Negative (Negative); Blood Urine Negative (Negative); Color Urine Yellow; Glucose Urine UA Negative (Negative); Ketones Urine Trace (Negative); Leukocyte Esterase Urine Negative (Negative); Nitrite Urine Negative (Negative); Protein Urine Negative (Negative); Specific Gravity Urine 1.026 (1.000-1.030); Urobilinogen Urine Negative (Negative)
[2020-07-03 14:59] LABS: Partial Thromboplastin Ratio 1.1; Partial Thromboplastin Time 29.3 Seconds (21.0-31.0); Prothrombin Time 10.7 Seconds (9.0-12.0)
[2020-07-03 16:24] LABS: Albumin Level 3.4 gm/dl (3.4-5.0); BUN Creatinine Ratio 20.2 (10-20); Calcium 8.6 mg/dl (8.5-10.1); Creatinine Clr Calc Pharmacy 32.4 ml/min; Est GFR (African American) 40.3; Est GFR (Non-African American) 34.8; Potassium 4.8 mmol/L (3.5-5.1)
--- NOTE | 2020-07-03 16:44 | Electrocardiogram Report ---
Test Reason : Blood Pressure : / mmHG Vent. Rate : 064 BPM Atrial Rate : 064 BPM P-R Int : 190 ms QRS Dur : 098 ms QT Int : 416 ms P-R-T Axes : 056 001 004 degrees QTc Int : 429 ms Sinus rhythm with occasional Premature ventricular complexes Voltage criteria for left ventricular hypertrophy Possible Inferior infarct , age undetermined Abnormal ECG When compared with ECG of 29-JUN-2019 11:22, Borderline criteria for Inferior infarct are now Present Confirmed by Espinoza Soares ([id number]) on 07/03/2020 4:43:21 PM Referred By: Walt Otero Confirmed By:Eber Soares
[2020-07-04 06:54] LABS: Estimated Average Glucose 126 mg/dl
[2020-08-01] MEDS ORDERED: FAMOTIDINE 20 MG TAB PO SCH (06:00)
[2020-08-01] MEDS ORDERED: GABAPENTIN 300 MG CAP PO SCH (06:00)
[2020-08-01] MEDS ORDERED: TRANEXAMIC ACID 1,000 MG **IV Pre-op IV SCH (06:00)
[2020-08-01] MEDS ORDERED: TRANEXAMIC ACID 1,000 MG **IV Intra-op IV SCH (06:00)
[2020-08-01] MEDS ORDERED: LR 500ML BOLUS, THEN 15ML/HR IV SCH (06:00)
[2020-08-01] MEDS ORDERED: dexAMETHasone 4 MG TAB PO SCH (06:00)
[2020-08-01] MEDS ORDERED: ACETAMINOPHEN 500 MG TAB PO SCH (06:00)
[2020-08-01] MEDS ORDERED: CEFAZOLIN 1000MG 1,000 MG/7.5 ML SYR IV SCH (06:00)
[2020-08-01] MEDS ORDERED: ROPIVACAINE 0.5% HCL/PF 150 MG, BUPIVACAINE 0.5% MPF 30 ML, EPINEPHrine 30MG/30ML (OR U... INSTIL SCH (06:00)
[2020-08-01] MEDS ORDERED: CeleBREX 200 MG CAP PO SCH (06:00)
[2020-08-01] MEDS ORDERED: METOCLOPRAMIDE HCL 10 MG TABLET ONE (06:37)
[2020-08-01] MEDS ORDERED: ORTHO JOINT ANESTHETIC ONE (07:02)
[2020-08-01] MEDS ORDERED: BACITRACIN INJ 50,000 UNIT VIAL ONE (07:03)
--- NOTE | 2020-08-01 07:14 | History & Physical Bridge Note ---
Date of Service August 01, 2020 History & Physical Bridge Note I have examined the patient, reviewed the History & Physical and in the interval since the performance of the History & Physical I have noted the following changes of clinical significance: no changes noted
[2020-08-01] MEDS ORDERED: BUPIVACAINE 0.5 % 5 MG/1 ML PF 10ML VIAL ONE (07:19)
[2020-08-01] MEDS ORDERED: BUPIVACAINE 0.25% 30 ML VIAL ONE (07:19)
[2020-08-01] MEDS ORDERED: MIDAZOLAM HCL 1 MG/ML 2ML VIAL ONE ×2 (07:25→07:49)
[2020-08-01] MEDS ORDERED: PROPOFOL IV EMULSION 10 MG/ML 20 ML VIAL IV ONE (08:31)
[2020-08-01] MEDS ORDERED: ONDANSETRON INJ 2 MG/ML 2 ML VIAL ONE (08:31)
--- NOTE | 2020-08-01 09:10 | Operative Report ---
Post Operative Report Pre & Post Diagnosis Operation Date: 08/01/20 07:45 Pre-Op Diagnosis: Unilateral Primary Osteoarthrits, Right Knee Post-Op Diagnosis: Unilateral Primary Osteoarthrits, Right Knee I identified the patient and participated in the time-out.: Yes Procedure Operation Date: 08/01/20 07:45 Actual Procedures p Right Total Knee Arthroplasty(Right) utilizing [employer] journey 2 patient matched total knee arthroplasty size 7 femur 7 tibia 11 polyethylene 3 5 oval patella- Walt Otero DO Surgeon Walt Otero DO Foreign Student Adviser Panda MICHELLE Estimated Blood Loss 5 Findings Consistent with Post-Op Diagnosis Patient presents with severe end-stage tricompartmental degenerative joint disease varus alignment subchondral sclerosis marginal osteophytes subchondral cystic changes eburnated [id number] varus alignment and moderate to large effusion Specimens Bone and cartilage Drains Medium bore Hemovac Anesthesia Type MAC Spinal Regional Complications none Disposition Accompanied Patient To Recovery: No Disposition: Recovery Room Indications Patient presents with severe end-stage tricompartmental degenerative joint disease no response to conservative management clinic physical therapy anti- inflammatories relative rest activity modification corticosteroid injections Visco supplementation the above intraoperative findings are noted time surgery. Description of Procedure After proper prepping and draping of the Right lower extremity anterior midline incision was made over the region of the extensor extensor mechanism after meticulous hemostasis was obtained and maintained in subcutaneous tissues a medial parapatellar incision was made The patella was subluxed lateralward the medial lateral gutter were cleaned from any hypertrophic synovitis and scar tissue of the distal femoral block was placed and the distal femoral osteotomy cut was made subsequently the chamfers anterior and posterior osteotomy cuts were made utilizing the 4-in-1 block the tibia was subsequently subluxed anteriorward medial and ateral meniscal remnants were excised in their entirety remnants of the anterior and posterior cruciate ligaments were excised in their entirety excellent exposure of the proximal tibia was obtained the tibial osteotomy guide was placed on the proximal tibial osteotomy cut was made once again the knee was irrigated with copious amounts of sterile saline solution the patella was subsequently everted lateralward thickened scar tissue around the patella was removed the patella was subsequently cut utilizing a freehand technique and was drilled prepared for final preparation and placement of patella socially flexion-extension gaps were checked and the equal and symmetric trials were placed to the appropriate femoral and tibial trials with poly-spacer being placed for equal flexion and extension gaps and full range of motion including extension to 0 and flexion to 140 the trial components after having been taken to recovery range of motion was subsequently removed meticulous hemostasis was obtained and maintained subsequently a knee block injection of joint cocktail including ropivacaine 0.5% 150 mg. Bupivacaine 0.5% epinephrine 1-200,030 mL's toradol 30 mg dexamethasone 4 mg ketamine 10 mg clonidine 100 micrograms normal saline solution 30 mg was infiltrated into the soft tissues of the posterior knee medial lateral gutters and periosteal synovium special attention was paid to protect neurovascular structures at all times subsequently trial components having been removed the knee was irrigated with sterile saline solution. debris was removed the proximal tibia was subsequently prepared and was made ready for the placement of the tibial component tibial component was also cemented and tamped into position the femoral component was subsequently placed and cemented in the position the patellar component was subsequently cemented in position because hemostasis once again obtained and maintained wound having been thoroughly irrigated with debridement and debridement lavage was performed as well as a medial parapatellar incision closed with #1 Vicryl in interrupted fashion subcutaneous was closed with #2 Vicryl skin was closed with skin clips. PA-C was necessary for prepping and drapping as well as wound c losure of deep fascia Sub cutaneous tissue and skin and was necessary for the case. A sterile compressive dressing was placed patient was taken to recovery in stable condition of report dictated by Branden I attest to the content of the Intraoperative Record and any orders documented therein. Any exceptions are noted below. I attest to the content of the Intraoperative Record and any orders documented therein. Any exceptions are noted below.
[2020-08-01] MEDS ORDERED: bisacodyL 10 MG SUPP PR PRN (11:09)
[2020-08-01] MEDS ORDERED: OXYCODONE HCL IR 5 MG TAB (IMMEDIATE RELEASE) PO PRN (11:09)
[2020-08-01] MEDS ORDERED: ONDANSETRON INJ 2 MG/ML 2 ML VIAL IV PRN (11:09)
[2020-08-01] MEDS ORDERED: MAGNESIUM HYDROXIDE SUSP 30 ML UDC PO PRN (11:09)
[2020-08-01] MEDS ORDERED: HYDROmorphone INJ 0.5 MG/0.5 ML SYR IV PRN (11:09)
[2020-08-01] MEDS ORDERED: NALOXONE HCL 0.4 MG/1 ML VIAL/CARP IV PRN (11:09)
--- NOTE | 2020-08-01 11:10 | XRay Report ---
XR knee RT 1 or 2V routine HISTORY: 79 years-old Male Surgical Post Op right knee total joint arthroplasty COMPARISON: None available at time of dictation TECHNIQUE: 2 views of the right knee FINDINGS: Right knee total joint arthroplasty and patella resurfacing. There is satisfactory alignment without acute fracture or opaque foreign body. Anterior midline skin flor are noted along with expected po stsurgical soft tissue swelling and deep tissue air with surgical drainage catheter. IMPRESSION: Right knee total joint arthroplasty with expected postoperative changes. ACT 112: Negative or not required by law. The above report was generated using voice recognition software. It may contain grammatical, syntax o r spelling errors. Electronically signed by: Atul Quinn M.D. 08/01/2020 11:08 AM
[2020-08-01] MEDS: SODIUM CHLORIDE 0.9% 1000ML 1,000 ML IV SCH ×2 (11:21→21:35)
[2020-08-01] MEDS: ACETAMINOPHEN 500 MG TAB PO SCH ×3 (14:04→21:37)
--- NOTE | 2020-08-01 15:12 | Anesthesiology Progress Note ---
Date of Service August 01, 2020 Anesthesia Post Procedure Vital Signs Vital Signs: Temp Pulse Pulse Resp BP BP Pulse Ox 08/01/20 14:04 71 16 133/69 98 08/01/20 13:02 74 16 126/69 99 08/01/20 12:04 68 14 124/65 93 08/01/20 11:35 60 14 124/64 94 08/01/20 11:05 36.5 C 77 16 129/69 99 08/01/20 10:55 61 12 116/66 94 08/01/20 10:45 36.4 C L 60 14 122/67 97 08/01/20 10:35 64 18 125/74 98 08/01/20 10:25 57 L 13 137/72 96 08/01/20 10:15 61 15 131/70 99 08/01/20 10:05 72 12 129/62 99 08/01/20 09:55 57 L 14 120/62 99 08/01/20 09:48 36.4 C L 74 18 128/66 100 08/01/20 06:23 36.6 C 78 18 163/91 H 96 Pain Intensity Right Knee: Pain Intensity: 0 Transfer of Care Handoff Completed per policy Notes Mental Status: alert / awake / arousable and participated in evaluation Patient Amnestic to Procedure: Yes Nausea / Vomiting: adequately controlled Pain: adequately controlled Airway Patency, RR, SpO2: stable & adequate BP & HR: stable & adequate Hydration State: stable & adequate Neuraxial Anesthesia: was administered and sensory block is resolving Anesthetic Complications: no major complications apparent and Pt Satisfied with anesthetic care
[2020-08-01] MEDS: CEFAZOLIN 1000MG 1,000 MG/7.5 ML SYR IV SCH (15:43)
[2020-08-01] MEDS: FERROUS GLUCONATE 324 MG TAB PO SCH (17:36)
[2020-08-01] MEDS: DOCUSATE SODIUM 100 MG CAP PO SCH (21:32)
[2020-08-01] MEDS: SENNA 8.6 MG TAB PO SCH ×2 (21:32→21:37)
[2020-08-01] MEDS: ASPIRIN 325 MG ECTAB PO SCH (21:32)
[2020-08-02] MEDS: CEFAZOLIN 1000MG 1,000 MG/7.5 ML SYR IV SCH (00:47)
[2020-08-02] MEDS: ACETAMINOPHEN 500 MG TAB PO SCH ×2 (05:54→13:52)
[2020-08-02 06:37] LABS: Hemoglobin 12.4 g/dL (14.0-18.0); Mean Corpuscular Hemoglobin 28.4 pg (25-34); Mean Corpuscular Hgb Conc 31.8 g/dL (32-36); Mean Corpuscular Volume 89.2 fL (80-100); Mean Platelet Volume 9.1 fL (7.4-10.4); Platelet Count 158 K/uL (130-400); Red Blood Count 4.37 M/uL (4.7-6.1); White Blood Count 10.28 K/uL (4.8-10.8)
[2020-08-02 07:21] LABS: BUN Creatinine Ratio 19.2 (10-20); Creatinine Clr Calc Pharmacy 36.1 ml/min; Est GFR (African American) 46.1; Est GFR (Non-African American) 39.8; Potassium 4.5 mmol/L (3.5-5.1)
--- NOTE | 2020-08-02 07:50 | Orthopedic Progress Note ---
Date of Service August 02, 2020 Assessment & Plan (1) S/P knee replacement: POD#1 Right TKA -PT/OT -Pain management -DVT prophylaxis- Aspirin 325mg BID, SCDs, TEDs -AM labs-hemoglobin at 12.4 -Drain output a little high, 125 at 0400 and then another 50ml at 0600. Will recheck later today -D/C planning-home with OPPT when stable, possibly today if PT goes well and drain output decreases. Admission and Anticipated Discharge Date Admission Date: August 01, 2020 Subjective Patient doing well this morning, not having much pain. Ambulating well. Denies complaints. No chest pain, sob, dizziness, n/v/d. Review of Systems Review of Systems: All systems reviewed & are unremarkable except as noted in HPI & below Physical Exam Physical Exam: Right knee dressing is c/d/i, PETRA suctioning, hemovac in place. Toes mobile with good dorsiflexion. No calf tenderness. Distally n/v status and sensation intact. Constitutional: well developed and well nourished; no acute distress Results & Data ([facility]) Vital Signs (Past 12 Hours) Vital Signs Temp Pulse Resp BP Pulse Ox 08/02/20 07:41 36.4 C L 72 16 150/78 H 96 08/02/20 03:58 36.4 C L 92 H 18 157/84 H 94 08/01/20 23:00 36.6 C 77 20 159/81 H 95 Laboratory Results Lab Results 07/03/20 07/03/20 07/03/20 Range/Units 14:21 14:21 14:21 WBC 5.27 (4.8-10.8) K/uL RBC 4.85 (4.7-6.1) M/uL Hgb 13.9 L (14.0-18.0) g/dL Hct 42.9 (42-52) % MCV 88.5 (80-100) fL MCH 28.7 (25-34) pg MCHC 32.4 (32-36) g/dL RDW Std Deviation 50.6 H (36.4-46.3) fL RDW Coeff of Aston 15.7 H (11.5-14.5) % Plt Count 169 (130-400) K/uL MPV 9.1 (7.4-10.4) fL Immature Gran % (Auto) 0.2 % Neut % (Auto) 59.7 % Lymph % (Auto) 26.6 % [place] % (Auto) 6.1 % Eos % (Auto) 6.6 % Baso % (Auto) 0.8 % Neut # (Auto) 3.15 (1.4-6.5) K/uL Lymph # (Auto) 1.40 (1.2-3.4) K/uL [place] # (Auto) 0.32 (0.11-0.59) K/uL Eos # (Auto) 0.35 (0-0.5) K/uL Baso # (Auto) 0.04 (0-0.2) K/uL Immature Gran # (Auto) 0.01 (0.00-0.02) K/uL PT 10.7 (9.0-12.0) Seconds INR 1.0 (0.9-1.1) APTT 29.3 (21.0-31.0) Seconds PTT Ratio 1.1 Sodium (136-145) mmol/L Potassium (3.5-5.1) mmol/L Chloride (98-107) mmol/L Carbon Dioxide (21-32) mmol/L Anion Gap (3-11) BUN (7-18) mg/dl Creatinine (0.6-1.4) mg/dl Est Cr Clr Drug Dosing ml/min Est GFR ( Amer) Est GFR (Non-Af Amer) BUN/Creatinine Ratio (10-20) Glucose (70-99) mg/dl Estimat Average Glucose mg/dl Hemoglobin A1c (4.5-5.6) % Calcium (8.5-10.1) mg/dl Albumin (3.4-5.0) gm/dl Urine Color Urine Appearance (Clear) Urine pH (4.5-7.5) Ur Specific [place] (1.000-1.030) Urine Protein (Negative) Urine Glucose (UA) (Negative) Urine Ketones (Negative) Urine Blood (Negative) Urine Nitrite (Negative) Urine Bilirubin (Negative) Urine Urobilinogen (Negative) Ur Leukocyte Esterase (Negative) Blood Type A Positive Antibody Screen NEGATIVE 07/03/20 07/03/20 07/03/20 Range/Units 14:21 14:21 14:21 WBC (4.8-10.8) K/uL RBC (4.7-6.1) M/uL Hgb (14.0-18.0) g/dL Hct (42-52) % MCV (80-100) fL MCH (25-34) pg MCHC (32-36) g/dL RDW Std Deviation (36.4-46.3) fL RDW Coeff of Aston (11.5-14.5) % Plt Count (130-400) K/uL MPV (7.4-10.4) fL Immature Gran % (Auto) % Neut % (Auto) % Lymph % (Auto) % [place] % (Auto) % Eos % (Auto) % Baso % (Auto) % Neut # (Auto) (1.4-6.5) K/uL Lymph # (Auto) (1.2-3.4) K/uL [place] # (Auto) (0.11-0.59) K/uL Eos # (Auto) (0-0.5) K/uL Baso # (Auto) (0-0.2) K/uL Immature Gran # (Auto) (0.00-0.02) K/uL PT (9.0-12.0) Seconds INR (0.9-1.1) APTT (21.0-31.0) Seconds PTT Ratio Sodium 144 (136-145) mmol/L Potassium 4.8 (3.5-5.1) mmol/L Chloride 109 H (98-107) mmol/L Carbon Dioxide 28 (21-32) mmol/L Anion Gap 7.0 (3-11) BUN 37 H (7-18) mg/dl Creatinine 1.82 H (0.6-1.4) mg/dl Est Cr Clr Drug Dosing 32.4 ml/min Est GFR ( Amer) 40.3 Est GFR (Non-Af Amer) 34.8 BUN/Creatinine Ratio 20.2 H (10-20) Glucose 95 (70-99) mg/dl Estimat Average Glucose 126 mg/dl Hemoglobin A1c 6.0 H (4.5-5.6) % Calcium 8.6 (8.5-10.1) mg/dl Albumin 3.4 (3.4-5.0) gm/dl Urine Color Yellow Urine Appearance Clear (Clear) Urine pH 5.0 (4.5-7.5) Ur Specific [place] 1.026 (1.000-1.030) Urine Protein Negative (Negative) Urine Glucose (UA) Negative (Negative) Urine Ketones Trace H (Negative) Urine Blood Negative (Negative) Urine Nitrite Negative (Negative) Urine Bilirubin Negative (Negative) Urine Urobilinogen Negative (Negative) Ur Leukocyte Esterase Negative (Negative) Blood Type Antibody Screen 08/02/20 08/02/20 Range/Units 06:08 06:08 WBC 10.28 (4.8-10.8) K/uL RBC 4.37 L (4.7-6.1) M/uL Hgb 12.4 L (14.0-18.0) g/dL Hct 39.0 L (42-52) % MCV 89.2 (80-100) fL MCH 28.4 (25-34) pg MCHC 31.8 L (32-36) g/dL RDW Std Deviation 49.0 H (36.4-46.3) fL RDW Coeff of Aston 15.0 H (11.5-14.5) % Plt Count 158 (130-400) K/uL MPV 9.1 (7.4-10.4) fL Immature Gran % (Auto) % Neut % (Auto) % Lymph % (Auto) % [place] % (Auto) % Eos % (Auto) % Baso % (Auto) % Neut # (Auto) (1.4-6.5) K/uL Lymph # (Auto) (1.2-3.4) K/uL [place] # (Auto) (0.11-0.59) K/uL Eos # (Auto) (0-0.5) K/uL Baso # (Auto) (0-0.2) K/uL Immature Gran # (Auto) (0.00-0.02) K/uL PT (9.0-12.0) Seconds INR (0.9-1.1) APTT (21.0-31.0) Seconds PTT Ratio Sodium 140 (136-145) mmol/L Potassium 4.5 (3.5-5.1) mmol/L Chloride 109 H (98-107) mmol/L Carbon Dioxide 24 (21-32) mmol/L Anion Gap 7.0 (3-11) BUN 31 H (7-18) mg/dl Creatinine 1.63 H (0.6-1.4) mg/dl Est Cr Clr Drug Dosing 36.1 ml/min Est GFR ( Amer) 46.1 Est GFR (Non-Af Amer) 39.8 BUN/Creatinine Ratio 19.2 (10-20) Glucose 126 H (70-99) mg/dl Estimat Average Glucose mg/dl Hemoglobin A1c (4.5-5.6) % Calcium 8.0 L (8.5-10.1) mg/dl Albumin (3.4-5.0) gm/dl Urine Color Urine Appearance (Clear) Urine pH (4.5-7.5) Ur Specific [place] (1.000-1.030) Urine Protein (Negative) Urine Glucose (UA) (Negative) Urine Ketones (Negative) Urine Blood (Negative) Urine Nitrite (Negative) Urine Bilirubin (Negative) Urine Urobilinogen (Negative) Ur Leukocyte Esterase (Negative) Blood Type Antibody Screen (1) S/P knee replacement Laterality: right Qualified Code(s): Z96.651 - Presence of right artificial knee joint
[2020-08-02] MEDS: FERROUS GLUCONATE 324 MG TAB PO SCH (08:01)
[2020-08-02] MEDS: DOCUSATE SODIUM 100 MG CAP PO SCH (08:01)
[2020-08-02] MEDS: ASPIRIN 325 MG ECTAB PO SCH (08:02)
[2020-08-02] MEDS ORDERED: MULTIVITAMIN TAB PO SCH (09:00)
[2020-08-02] MEDS ORDERED: ISOSORBIDE MONO EXTENDED REL 60 MG TABCR PO SCH (09:00)
--- NOTE | 2020-08-07 17:03 | Discharge Summary ---
Date of Service August 07, 2020 Admission HPI Per Admitting Provider Mr Lundy is a 79 year old male who complains of right knee pain, presents for pre-op prior to a right total knee replacement at [facility]. He presents with pain and stiffness on the right side. He states that the symptoms have been chronic non-traumatic and are constant with intermittent worsening. Currently the patient states that the symptoms are moderate. The pain is described as aching and throbbing. He rates his current pain as 5/10. The symptoms are aggravated by daily activities. he has had prior visco injections without much relief. Admission Exam Per Admitting Provider Physical Exam: Ht: 5ft 8in Wt: 72.58kg BP: 128/78 Constitutional: WD/WN, vitals as above no acute distress Respiratory: normal respiratory effort, lungs clear to auscultation no respiratory distress, no labored breathing and does not use accessory muscles Cardiovascular: RRR, no murmur, no edema Gastrointestinal (Abdomen): normal bowel sounds, soft, nontender, no hepatosplenomegaly Musculoskeletal: Knee: + knee abnormal to inspection (Right knee-), + effusion (+1 effusion), + limited ROM of knee (ROM 0/3/110), + knee ROM with crepitation, + joint line tenderness (medial joint line) and + Maciej's sign positive; no deformity, no skin erythema, no ecchymosis, no valgus laxity, no varus laxity, anterior drawer test negative, Laurie's sign negative and pivot shift test negative Principal Diagnosis Right Knee Djd Discharge Data Allergies Allergy/AdvReac Type Severity Reaction Status Date / Time No Known Allergies Allergy Verified 08/01/20 06:10 Consultations 08/01/20 11:09 Consult Case Management - Discharge Planning Routine Procedures Performed Operation Date: 08/01/20 07:45 Actual Procedures p Right Total Knee Arthroplasty(Right) - Walt Otero DO Ordered Studies 08/01/20 05:00 US - OR guided needle placemen Routine Hospital Course (1) Arthritis of right knee: Assessment & Plan (1) S/P knee replacement: POD#1 Right TKA -PT/OT -Pain management -DVT prophylaxis- Aspirin 325mg BID, SCDs, TEDs -AM labs-hemoglobin at 12.4 -Drain output a little high, 125 at 0400 and then another 50ml at 0600. Will recheck later today -D/C planning-home with OPPT when stable, possibly today if PT goes well and drain output decreases. Pt progressing well in PT. Switching to Home Health services. They will dc dressing and drain tomorrow. Plan for dc to home. Admission and Anticipated Discharge Date Admission Date: August 01, 2020 Subjective Patient doing well this morning, not having much pain. Ambulating well. Denies complaints. No chest pain, sob, dizziness, n/v/d. Review of Systems Review of Systems: All systems reviewed & are unremarkable except as noted in HPI & below Physical Exam Physical Exam: Right knee dressing is c/d/i, PETRA suctioning, hemovac in place. Toes mobile with good dorsiflexion. No calf tenderness. Distally n/v status and sensation intact. Constitutional: well developed and well nourished; no acute distress Results & Data ([facility]) Vital Signs (Past 12 Hours) Vital Signs Temp Pulse Resp BP Pulse Ox 08/02/20 07:41 36.4 C L 72 16 150/78 H 96 08/02/20 03:58 36.4 C L 92 H 18 157/84 H 94 08/01/20 23:00 36.6 C 77 20 159/81 H 95 Laboratory Results Lab Results 07/03/20 07/03/20 07/03/20 Range/Units 14:21 14:21 14:21 WBC 5.27 (4.8-10.8) K/uL RBC 4.85 (4.7-6.1) M/uL Hgb 13.9 L (14.0-18.0) g/dL Hct 42.9 (42-52) % Total Time Total Time Spent Total Time Spent (In Minutes): 5 Discharge Plan Discharge Items Patient Disposition: Home - Home Health Services Reason For Visit: Unilateral Primary Osteoarthrits, Right Knee Discharge Diagnosis: Right Knee Osteoarthritis Activity: Resume your previous activity Weightbearing: Right weightbearing Weightbearing Comment: as tolerated with walker Non-emergency contact: Hospitalist Call non-emergency contact if: your pain is not controlled, your temperature is above 101.5, your wound has increased redness and your wound has increased drainage Follow-up/Referrals: PCP,NO [Primary Care Provider] - Diet: Regular Addtl Attending Provider Instructions: ACTIVITY RECOMMENDATIONS: SELF CARE INSTRUCTIONS AFTER TOTAL KNEE REPLACEMENT A. You may need to continue a physical therapy program after discharge from the hospital. There are several options available to you. Your doctor will assist you in selecting the best one for you. 1. An out-patient facility 2 to 3 times a week for therapy or home therapy. 2. Continue working on all exercises taught to you in the hospital. Your goals should be to increase bending of your knee to 90 degrees and beyond and to fully straighten your knee. B. You may progress at your own pace from walking with a walker or crutches to a cane; then to no assistive devices. C. Make walking a part of your daily routine. Be up as much as comfortable with rest periods throughout the day. Rest with leg elevation is very important. Use the ice wrap frequently for the first 3-4 weeks. D. There are no restrictions on activities. You may ride in a car, shop, participate in supply chain specialist and all social activities. E. Wear the long elastic stockings (CHRISTA hose) 20 hours a day for 2 weeks after surgery. They can be removed several times a day for laundering and for a bath. F. You may shower, no tub baths until cleared by your doctor. SPECIAL CARE INSTRUCTIONS: VERY IMPORTANT TO READ AND REVIEW A. There are a few signs you need to watch for after you are home. Call [facility] if you notice any of the followin. Increased severe knee pain. Some pain is expected especially when you exercise. 2. Increased swelling in your leg or knee; pain or swelling of the calf muscle in either lower leg. 3. Any fluid drainage from the incision. 4. Shortness of breath or chest pain. B. Please call [facility] at if you have any concerns or questions about your operation or recovery. The doctor or his nurse will return your call promptly. C. You must take antibiotics before dental work, bladder, bowel or other surgery. Your doctor will provide you with a permanent care to carry describing this precaution. IMPORTANT: * REMEMBER TO TAKE ASPIRIN, 81 MG, TWICE DAILY FOR 4 WEEKS UNLESS OTHERWISE DIRECTED. THIS IS YOUR BLOOD THINNER. * HIGH RISK PATIENTS MAY BE PRESCRIBED A STRONGER BLOOD THINNER. THIS WILL BE PROVIDED AT DISCHARGE. * CALL IF INCREASED PAIN, REDNESS, DRAINAGE OR FEVER GREATER THAT 101. * WEAR CHRISTA HOSE 20 HOURS PER DAY FOR 2 WEEKS. * PETRA dressing - This is a large suction dressing covering your incision. This will help pull any excess drainage from the wound and allow your incision to heal properly. You may shower with this if you can keep the unit outside of the shower. If any bleeding or leakage is noted please call your doctor's office. This will remain on your incision for 7 days and then should be removed. This can be done yourself or by the home nursing staff if applicable. The entire unit is disposable once removed. Once removed, keep incision clean and dry. If redness or drainage is noted, please call your surgeon. . FOLLOW UP VISIT: If appointment is not already scheduled: Please call [facility] to make a follow-up appointment for 2 weeks after your surgery at . Stand-Alone Forms: [facility] OpGen, Opioid Pain Management, Smoking Cessation Medications and DC Order Prescriptions: New acetaminophen 500 mg Tablet 1,000 mg PO Q8 Qty: 60 RF: 0 aspirin [Ecotrin] 325 mg Tablet,Delayed Release (Dr/Ec) 325 mg PO BID Qty: 60 RF: 0 oxycodone 5 mg Tablet 5 - 10 mg PO .Q4h-6h MDD 6 PRN (Reason: pain) Qty: 30 RF: 0 cefadroxil 500 mg capsule 500 mg PO BID Qty: 14 RF: 0 Continued isosorbide mononitrate 60 mg Tablet Extended Release 24 Hr 60 mg PO QAM RF: 0 Discontinued aspirin 325 mg Tablet 325 mg PO QAM RF: 0 Discharge Orders: Discharge Order (Routine); Ordered 08/02/20 Ordered By: Panda Campa/Other Patient Handouts: A1C Admission Data Admit Date/Time: 08/01/20 12:09 Attending Provider: Walt Otero Admit Provider: Walt Otero Primary Care Provider: PCP,NO Other Interventions: Discharge Summary Assessment (RN) Last Done: 08/02/20 13:30
== END 2020-08-02 14:17 | disposition home health service (06) | DRG 470 ==
LOC: 3E 05:59 → ASU 05:59